=== PATIENT | male | born 1990 | race Caucasian/White ===

== ENCOUNTER → 2016-08-14 | Outpatient (CLI) | payer BC | LOC: OD 17:12 | PROVIDERS: ATTEND Nurse Practitioner Acute Care | DX: S62.002A Unspecified fracture of navicular [scaphoid] bone of left wrist, initial encounter for closed fracture (principal); X58.XXXA Exposure to other specified factors, initial encounter ==

== ENCOUNTER 2016-08-15 08:23 | Emergency (ER) | payer BC ==
--- NOTE | 2016-08-15 08:56 | ER Document Report ---
ED Hand/Wrist Injury - General Mode of Arrival: Ambulatory Information source: Patient TRAVEL OUTSIDE OF THE [place] IN LAST 30 DAYS: No - HPI Injury to: Wrist - left Onset: Other - x1 month Quality of pain: Achy, Sharp <JACQUELINE LOPEZ - Last Filed: 08/15/16 09:22> <TATYANA CALLE - Last Filed: 08/15/16 10:04> - General Chief Complaint: Wrist Injury Stated Complaint: WRIST INJURY Notes: Patient is a 26-year-old male that presents to the emergency department today with complaints of left wrist pain. Patient states approximately one month ago , he was tackled from behind during a sporting activity and he landed on an outstretched left arm and wrist. Patient states he has had pain since then. Patient had an outpatient x-ray done yesterday for the first time which revealed a left navicular fracture. Patient states he has had intermittent pain for one month and has noticed that his pain increases with attempting to pick something up with his left wrist. Patient has good sensation and digit movement distally. (JACQUELINE LOPEZ) - Related Data Allergies/Adverse Reactions: No Known Allergies Allergy (Verified 08/15/16 08:32) Home Medications: Current Home Medications No Home Medications 08/15/16 [History] Past Medical History - General Information source: Patient - Social History Smoking Status: Never Smoker Cigarette use (# per day): No Chew tobacco use (# tins/day): No Frequency of alcohol use: None Drug Abuse: None Occupation: [employer] Lives with: Family Family History: Reviewed & Not Pertinent Patient has suicidal ideation: No Patient has homicidal ideation: No - Medical History Medical History: Negative Surgical Hx: Negative <JACQUELINE LOPEZ - Last Filed: 08/15/16 09:22> Review of Systems - Review of Systems Constitutional: No symptoms reported EENT: No symptoms reported Cardiovascular: No symptoms reported Respiratory: No symptoms reported Gastrointestinal: No symptoms reported Genitourinary: No symptoms reported Male Genitourinary: No symptoms reported Musculoskeletal: See HPI, Joint pain - left wrist pain Skin: No symptoms reported Hematologic/Lymphatic: No symptoms reported Neurological/Psychological: No symptoms reported -: Yes All other systems reviewed and negative <JACQUELINE LOPEZ - Last Filed: 08/15/16 09:22> Physical Exam - General General appearance: Appears well, Alert In distress: None - HEENT Head: Normocephalic, Atraumatic Eyes: Normal Extraocular movements intact: Yes - Respiratory Respiratory status: No respiratory distress - Cardiovascular Rhythm: Regular - Abdominal Inspection: Normal Distension: No distension - Extremities General upper extremity: Other - tenderness and swelling over left navicular bone General lower extremity: Normal inspection, Normal ROM. No: Edema - Neurological Neuro grossly intact: Yes Cognition: Normal Orientation: AAOx4 Speech: Normal - Psychological Associated symptoms: Normal affect, Normal mood - Skin Skin Temperature: Warm Skin Moisture: Dry Skin Color: Normal <JACQUELINE LOPEZ - Last Filed: 08/15/16 09:22> Course - Consults Dr. Gtz Time consulted: 10:00 Consulted provider: follow-up in office - Will see in the office today. <TATYANA CALLE - Last Filed: 08/15/16 10:04> - Vital Signs Vital signs: Temp Pulse Resp BP Pulse Ox 97.9 F 59 L 16 114/62 100 08/15/16 08:28 08/15/16 08:28 08/15/16 08:28 08/15/16 08:28 08/15/16 08:28 Discharge <JACQUELINE LOPEZ - Last Filed: 08/15/16 09:22> <TATYANA CALLE - Last Filed: 08/15/16 10:04> - Discharge Clinical Impression: Fracture of navicular bone of left wrist Qualifiers: Encounter type: initial encounter Scaphoid bone location: proximal third Fracture type: closed Fracture alignment: displaced Qualified Code(s): S62.032A - Displaced fracture of proximal third of navicular [scaphoid] bone of left wrist, initial encounter for closed fracture Condition: Stable Disposition: HOME, SELF-CARE Additional Instructions: GO TO SEE DR. GTZ AT [facility] TODAY. Referrals: [facility] [Provider Group] - 08/16/16 Scribe Attestation: 08/15/16 10:04 I personally performed the services described in the documentation, reviewed and edited the documentation which was dictated to the scribe in my presence, and it accurately records my words and actions. (TATYANA CALLE) Scribe Documentation - Scribe Written by Scribe:: Jose Barnes, 08/15/2016 0930 acting as scribe for :: Claire <JACQUELINE LOPEZ - Last Filed: 08/15/16 09:22>
[2016-08-15 10:16] VITALS: BP 111/66
== END 2016-08-15 10:15 | disposition home or self-care (01) ==
LOC: ER 08:23
DX: S62.032A Displaced fracture of proximal third of navicular [scaphoid] bone of left wrist, initial encounter for closed fracture (principal); X58.XXXA Exposure to other specified factors, initial encounter
CPT/HCPCS: 99283

== ENCOUNTER 2018-04-22 00:36 | Emergency (ER) | payer BC ==
--- NOTE | 2018-04-22 01:53 | ER Document Report ---
ED General - General Chief Complaint: Breathing Difficulty Stated Complaint: SHORT OF BREATH, DIZZY Time Seen by Provider: 04/22/18 01:32 Notes: Patient is a 28-year-old male who presents to the emergency department tonight occultly breathing that has now resolved. He states he has been having this problem intermittently for the past 2 years. He does not try to do anything to improve his symptoms, and states that when he eats he ends up having this episode. He tries not to eat very much because he is afraid of triggering his symptoms. He denies any past medical history. His family history includes diabetes. He denies smoking or illicit drug use. He does drink beer about 3-4 times a week. TRAVEL OUTSIDE OF THE [place] IN LAST 30 DAYS: No - Related Data Allergies/Adverse Reactions: No Known Allergies Allergy (Verified 08/15/16 08:32) Past Medical History - Social History Smoking Status: Never Smoker Frequency of alcohol use: Occasional Drug Abuse: None Family History: Reviewed & Not Pertinent Renal/ Medical History: Denies: Hx Peritoneal Dialysis Review of Systems - Review of Systems Notes: REVIEW OF SYSTEMS: CONSTITUTIONAL : Denies recent illness. Denies recent unintentional weight loss. Denies fever, chills, or sweats. EENT: Denies eye, ear, throat, or mouth pain, discharge, or symptoms. Denies nasal or sinus congestion. CARDIOVASCULAR: See HPI RESPIRATORY: See HPI GASTROINTESTINAL: Denies nausea, vomiting, and diarrhea. Denies abdominal pain. Denies constipation. GENITOURINARY: Denies difficulty urinating, burning, blood in urine, urgency or frequency. MUSCULOSKELETAL: Denies neck and back pain. Denies joint pain or swelling. SKIN: Denies rash, itchiness, or lesions HEMATOLOGIC : Denies easy bruising or bleeding. LYMPHATIC: Denies swollen, painful, enlarged glands. NEUROLOGICAL: See HPI denies no numbness or tingling denies weakness. Denies headache. Denies altered mental status. Denies alteration in speech. PSYCHIATRIC: Denies stress, anxiety, alteration in sleep patterns, or depression. All other systems reviewed and negative. Physical Exam - Vital signs Vitals: Temp Pulse Resp BP Pulse Ox 98.0 F 67 16 108/66 100 04/22/18 01:12 04/22/18 01:12 04/22/18 01:12 04/22/18 01:12 04/22/18 01:12 - Notes Notes: PHYSICAL EXAMINATION: GENERAL: Appears well, healthy, well-nourished, no acute distress. HEAD: Normocephalic, atraumatic. EYES: PERRL, conjunctiva normal, all extraocular movements intact, sclera nonicteric ENT: Moist mucous membranes. NECK: Supple, no noticeable swelling, redness, rash. Normal range of motion. LUNGS: Equal breath sounds bilaterally and clear to auscultation. No wheezes rales or rhonchi. CARDIOVASCULAR: S1-S2, regular rate, regular rhythm. Radial pulses 2+, normal. ABDOMEN: Normoactive bowel sounds. Soft, nontender, no guarding, no rebound tenderness, and no masses palpated. EXTREMITIES: Normal strength and range of motion, no pitting or edema. No cyanosis. NEUROLOGICAL: Moves all extremities upon command. Strength 5/5 in all extremities. PSYCH: Normal mood, normal affect. SKIN: Warm, dry. No rash, lesions, ulcerations noted. Normal skin turgor. Course - Re-evaluation Re-evalutation: 04/22/18 03:13 Patient states that he has not felt the same sensation he has fell earlier tonight. Vital signs have been normal. I gave him a sandwich to try to elicit the same response that he had earlier. His labs are unremarkable at this time. Still waiting for TSH results. 04/22/18 03:40 Called lab to get TSH results. They said it is running at this time and will be ready shortly. 04/22/18 04:18 Called lab to get TSH results. They said it will be ready in 13 minutes. 04/22/18 04:35 Patient's TSH is normal. He is stable for discharge normal vital signs. Verbal discharge instructions were given to the patient. He verbalized understanding. He says he will establish primary care doctor and follow-up with a machine lacer. - Vital Signs Vital signs: Temp Pulse Resp BP Pulse Ox 98.0 F 67 13 108/66 97 04/22/18 01:12 04/22/18 01:12 04/22/18 04:00 04/22/18 01:12 04/22/18 04:00 - Laboratory Result Diagrams: 04/22/18 02:05 04/22/18 02:05 Laboratory results interpreted by me: 04/22/18 02:05 Calcium 10.3 H Discharge - Discharge Clinical Impression: Shortness of breath, Dizziness, Increased heart rate Condition: Stable Disposition: HOME, SELF-CARE Additional Instructions: You have been seen in the emergency department for shortness of breath, dizziness, and increased heart rate. Your symptoms have not shown here in the emergency department. Your labs are unremarkable. It is unclear as to why you have been having his episodes for the past 2 years. Please establish a primary care doctor for your general health., Please follow-up with a machine lacer to see if the symptoms are possibly related to your heart. If you pass out, have shortness of breath again, dizziness, or any M symptoms that are worrisome to you, please return to the emergency department
[2018-04-22 02:19] LABS: ABSOLUTE BASOPHILS # (AUTO) 0.1 10^3/uL (0.0-0.2); ABSOLUTE EOSINOPHILS # (AUTO) 0.2 10^3/uL (0.0-0.6); ABSOLUTE LYMPHOCYTES (AUTO) 2.3 10^3/uL (0.5-4.7); ABSOLUTE MONOCYTES (AUTO) 0.7 10^3/uL (0.1-1.4); ABSOLUTE NEUT (AUTO) 3.9 10^3/uL (1.7-8.2); BASOPHILS % (AUTO) 1.4 % (0-2); EOSINOPHILS % (AUTO) 2.2 % (0-6); HEMATOCRIT 48.2 % (37.9-51.0); HEMOGLOBIN 16.9 g/dL (13.5-17.0); LYMPHOCYTES % (AUTO) 32.2 % (13-45); MEAN CORPUSCULAR HEMOGLOBIN 30.5 pg (27.0-33.4); MEAN CORPUSCULAR VOLUME 87 fl (80-97); MONOCYTES % (AUTO) 9.6 % (3-13); PLATELET COUNT 285 10^3/uL (150-450); RED BLOOD COUNT 5.54 10^6/uL (4.35-5.55); RED CELL DISTRIBUTION WIDTH 12.8 % (11.5-14.0); SEGMENTED NEUTROPHILS % (AUTO) 54.6 % (42-78); TOTAL CELLS COUNTED % (AUTO) 100 %; WHITE BLOOD COUNT 7.1 10^3/uL (4.0-10.5)
[2018-04-22 02:34] LABS: ALANINE AMINOTRANSFERASE 24 U/L (21-72); ALKALINE PHOSPHATASE 58 U/L (38-126); ANION GAP 12 (5-19); ASPARTATE AMINO TRANSFERASE 23 U/L (17-59); BILIRUBIN,DIRECT 0.3 mg/dL (0.0-0.4); BILIRUBIN,TOTAL 0.8 mg/dL (0.2-1.3); BLOOD UREA NITROGEN 16 mg/dL (7-20); CALCIUM 10.3 mg/dL (8.4-10.2); CARBON DIOXIDE 30 mmol/L (22-30); CHLORIDE 101 mmol/L (98-107); GLUCOSE 101 mg/dL (75-110); POTASSIUM 4.1 mmol/L (3.6-5.0); SODIUM 142.7 mmol/L (137-145); TOTAL PROTEIN 7.9 g/dL (6.3-8.2)
[2018-04-22 04:43] VITALS: BP 119/81
== END 2018-04-22 04:43 | disposition home or self-care (01) ==
LOC: ER 00:36
DX: R06.02 Shortness of breath (principal); R42 Dizziness and giddiness; R00.0 Tachycardia, unspecified; R06.00 Dyspnea, unspecified
CPT/HCPCS: 36415; 80053; 83735; 84443; 85025; 99285